=== PATIENT | female | born 1925 | race Caucasian/White ===

== ENCOUNTER 2016-10-05 20:00 | Inpatient (IN) | payer MEDICARE, OTHER ==
[~2016-10-05] VITALS: Ht 154.9 cm; Wt 58.9 kg
[2016-10-05] MEDS ORDERED: NITROGLYCERIN 2% OINT 1 INCH PKT TOPICAL ONE (21:57)
[2016-10-05] MEDS ORDERED: Furosemide 100 MG/10 ML VIAL ONE (21:57)
[2016-10-05] MEDS ORDERED: ASPIRIN 81 MG CHEW TAB ONE (23:53)
[2016-10-06] VITALS (12 sets, daily range): BP systolic 133–202; RESP 16–20; TEMP 97.4–98.5; Ht 154.9 cm; Wt 58.9 kg
[2016-10-06] MEDS ORDERED: LORAZEPAM 0.5 MG TAB PO PRN (00:25)
[2016-10-06] MEDS ORDERED: SALINE FLUSH 10 ML FLUSH PRN (00:25)
[2016-10-06] MEDS ORDERED: DOCUSATE SOD 100 MG CAP PO PRN (00:25)
[2016-10-06] MEDS ORDERED: ACETAMINOPHEN 325 MG TAB PO PRN (00:25)
[2016-10-06] MEDS ORDERED: MORPHINE 2 MG/ML SYR IV PRN (00:25)
[2016-10-06] MEDS ORDERED: SODIUM CHLORIDE 0.9% FLUSH BAG 500 ML IV PRN (00:25)
[2016-10-06] MEDS ORDERED: NITROGLYCERIN 50 MG/250 ML IV PRN (00:25)
[2016-10-06] MEDS ORDERED: TRAMADOL 50 MG TAB PO PRN (00:25)
[2016-10-06] MEDS: NITROGLYCERIN 2% OINT 1 INCH PKT TOPICAL SCH ×4 (06:21→23:49)
[2016-10-06] MEDS: NITROGLYCERIN SL 0.4 MG TAB SL PRN ×2 (06:28→06:36)
[2016-10-06] MEDS: SALINE FLUSH 10 ML FLUSH SCH ×2 (07:37→20:30)
[2016-10-06] MEDS: ASPIRIN EC 81 MG TAB PO SCH (07:37)
[2016-10-06] MEDS ORDERED: Furosemide 40 MG/4 ML VIAL IV SCH ×2 (09:00→21:00)
[2016-10-06] MEDS ORDERED: METOPROLOL TART 50 MG TAB PO SCH (09:00)
[2016-10-06] MEDS: APIXABAN 2.5 MG TAB PO SCH ×2 (10:44→20:31)
[2016-10-06] MEDS: SPIRONOLACTONE 25 MG TAB PO SCH (10:44)
[2016-10-06] MEDS ORDERED: [UNRECOGNIZED DRUG - OTHER] PO SCH (16:35)
[2016-10-06] MEDS ORDERED: THYROID PO SCH ×3 (18:33→18:34)
[2016-10-06] MEDS: *HOME MEDS IN MED CART XX SCH (20:00)
[2016-10-06] MEDS: METOPROLOL TART 25 MG TAB PO SCH (20:31)
[2016-10-06] MEDS: FERROUS SULF 325 MG TAB PO SCH (20:31)
[2016-10-06] MEDS: TEMAZEPAM 7.5 MG CAP PO PRN (21:54)
[2016-10-07] MEDS ORDERED: MISSING DOSE XX ONE ×3 (01:20→17:05)
[2016-10-07 04:20] VITALS: BP_SYST 143; RESP 16; TEMP 97.5
[2016-10-07] MEDS: NITROGLYCERIN 2% OINT 1 INCH PKT TOPICAL SCH ×2 (06:38→12:46)
[2016-10-07 07:37] VITALS: BP_SYST 145; RESP 16; TEMP 97.5
[2016-10-07] MEDS: SPIRONOLACTONE 25 MG TAB PO SCH (09:41)
[2016-10-07] MEDS: METOPROLOL TART 25 MG TAB PO SCH ×2 (09:41→20:29)
[2016-10-07] MEDS: CHOLECALCIFEROL 1,000 UNITS TAB PO SCH (09:41)
[2016-10-07] MEDS: APIXABAN 2.5 MG TAB PO SCH ×2 (09:41→20:29)
[2016-10-07] MEDS: CYANOCOBA 500 MCG TAB PO SCH (09:41)
[2016-10-07] MEDS: FERROUS SULF 325 MG TAB PO SCH ×2 (09:41→20:29)
[2016-10-07] MEDS: ASPIRIN EC 81 MG TAB PO SCH (09:41)
[2016-10-07] MEDS: FENOFIBRATE 145 MG TAB PO SCH (09:41)
[2016-10-07] MEDS: SALINE FLUSH 10 ML FLUSH SCH ×2 (09:42→20:29)
[2016-10-07] MEDS: Furosemide 40 MG/4 ML VIAL IV SCH (09:42)
[2016-10-07] MEDS: *HOME MEDS IN MED CART XX SCH ×2 (09:43→20:00)
[2016-10-07] MEDS: ONDANSETRON 4 MG VIAL IV PRN (09:48)
[2016-10-07 10:40] VITALS: BP_SYST 150; RESP 16; TEMP 97.4
[2016-10-07 14:24] VITALS: BP_SYST 141; RESP 18
[2016-10-07] MEDS: THYROID 15 MG PO SCH ×2 (16:32→17:59)
[2016-10-07] MEDS: THYROID 30 MG TAB PO SCH ×2 (16:33→17:58)
[2016-10-07] MEDS: DOCUSATE SOD 100 MG CAP PO PRN (17:58)
[2016-10-07] MEDS: amLODIPine 2.5 MG TAB PO SCH (17:58)
[2016-10-07 19:59] VITALS: BP_SYST 148; RESP 16; TEMP 97.3
[2016-10-07] MEDS: TEMAZEPAM 7.5 MG CAP PO PRN (21:49)
[2016-10-07 22:48] VITALS: BP_SYST 121; RESP 16; TEMP 97.4
[2016-10-08 03:25] VITALS: BP_SYST 128; RESP 16; TEMP 97.4
[2016-10-08] MEDS: THYROID 15 MG PO SCH (06:16)
[2016-10-08] MEDS: THYROID 30 MG TAB PO SCH (06:16)
[2016-10-08 07:42] VITALS: BP_SYST 139; RESP 16; TEMP 97.4
[2016-10-08] MEDS: *HOME MEDS IN MED CART XX SCH ×2 (08:00→20:00)
[2016-10-08] MEDS: amLODIPine 2.5 MG TAB PO SCH (09:00)
[2016-10-08] MEDS: CYANOCOBA 500 MCG TAB PO SCH (09:00)
[2016-10-08] MEDS: FERROUS SULF 325 MG TAB PO SCH ×2 (09:00→21:12)
[2016-10-08] MEDS: SALINE FLUSH 10 ML FLUSH SCH ×2 (09:00→21:12)
[2016-10-08] MEDS: FENOFIBRATE 145 MG TAB PO SCH (09:01)
[2016-10-08] MEDS: APIXABAN 2.5 MG TAB PO SCH ×2 (09:01→21:12)
[2016-10-08] MEDS: ASPIRIN EC 81 MG TAB PO SCH (09:01)
[2016-10-08] MEDS: SPIRONOLACTONE 25 MG TAB PO SCH (09:01)
[2016-10-08] MEDS: METOPROLOL TART 25 MG TAB PO SCH ×2 (09:01→21:12)
[2016-10-08] MEDS: CHOLECALCIFEROL 1,000 UNITS TAB PO SCH (09:02)
[2016-10-08] MEDS: Furosemide 40 MG/4 ML VIAL IV SCH (09:02)
[2016-10-08] MEDS: DOCUSATE SOD 100 MG CAP PO PRN ×2 (09:02→21:12)
[2016-10-08 11:57] VITALS: BP_SYST 149; RESP 16; TEMP 97.4
[2016-10-08 16:00] VITALS: BP_SYST 152; RESP 16; TEMP 97.8
[2016-10-08 19:17] VITALS: BP_SYST 156; RESP 16; TEMP 97.4
[2016-10-08] MEDS: LORAZEPAM 0.5 MG TAB PO PRN (21:15)
[2016-10-08 23:06] VITALS: BP_SYST 147; RESP 16; TEMP 97.6
[2016-10-09 02:59] VITALS: BP_SYST 134; RESP 16; TEMP 97.6
[2016-10-09] MEDS: THYROID 30 MG TAB PO SCH (06:28)
[2016-10-09] MEDS: THYROID 15 MG PO SCH (06:30)
[2016-10-09] MEDS: *HOME MEDS IN MED CART XX SCH ×2 (07:32→20:00)
[2016-10-09] MEDS ORDERED: SODIUM CHLORIDE 0.9% 250 ML IV ONE (07:50)
[2016-10-09] MEDS ORDERED: KCL 20 MEQ/15 ML UDC PO ONE (07:50)
[2016-10-09 08:07] VITALS: BP_SYST 139; RESP 16; TEMP 97.5
[2016-10-09] MEDS ORDERED: SODIUM CHLORIDE 0.9% 500 ML IV ONE (08:20)
[2016-10-09] MEDS: FERROUS SULF 325 MG TAB PO SCH ×2 (08:25→20:39)
[2016-10-09] MEDS: SALINE FLUSH 10 ML FLUSH SCH ×2 (08:25→20:38)
[2016-10-09] MEDS: METOPROLOL TART 25 MG TAB PO SCH ×2 (08:25→20:39)
[2016-10-09] MEDS: APIXABAN 2.5 MG TAB PO SCH ×2 (08:26→20:39)
[2016-10-09] MEDS: FENOFIBRATE 145 MG TAB PO SCH (08:26)
[2016-10-09] MEDS: ASPIRIN EC 81 MG TAB PO SCH (08:26)
[2016-10-09] MEDS: amLODIPine 2.5 MG TAB PO SCH (08:26)
[2016-10-09] MEDS: CHOLECALCIFEROL 1,000 UNITS TAB PO SCH (08:26)
[2016-10-09] MEDS: CYANOCOBA 500 MCG TAB PO SCH (08:26)
[2016-10-09 12:01] VITALS: BP_SYST 137; RESP 16; TEMP 97.7
[2016-10-09] MEDS: ONDANSETRON 4 MG VIAL IV PRN (13:08)
[2016-10-09 15:44] VITALS: BP_SYST 143; RESP 16; TEMP 97.6
[2016-10-09 19:23] VITALS: BP_SYST 150; RESP 16; TEMP 97.5
[2016-10-09] MEDS: LORAZEPAM 0.5 MG TAB PO PRN (20:39)
[2016-10-09 23:20] VITALS: BP_SYST 134; RESP 16; TEMP 97.8
[2016-10-10] MEDS: TEMAZEPAM 7.5 MG CAP PO PRN (01:57)
[2016-10-10 03:53] VITALS: BP_SYST 144; RESP 16; TEMP 97.6
[2016-10-10] MEDS: THYROID 15 MG PO SCH (06:29)
[2016-10-10] MEDS: THYROID 30 MG TAB PO SCH (06:29)
[2016-10-10 07:09] VITALS: BP_SYST 147; RESP 16; TEMP 97.7
[2016-10-10] MEDS: *HOME MEDS IN MED CART XX SCH ×2 (09:15→20:00)
[2016-10-10] MEDS: ASPIRIN EC 81 MG TAB PO SCH (09:17)
[2016-10-10] MEDS: FENOFIBRATE 145 MG TAB PO SCH (09:18)
[2016-10-10] MEDS: CHOLECALCIFEROL 1,000 UNITS TAB PO SCH (09:18)
[2016-10-10] MEDS: FERROUS SULF 325 MG TAB PO SCH ×2 (09:18→21:38)
[2016-10-10] MEDS: METOPROLOL TART 25 MG TAB PO SCH ×2 (09:18→21:38)
[2016-10-10] MEDS: amLODIPine 2.5 MG TAB PO SCH (09:18)
[2016-10-10] MEDS: CYANOCOBA 500 MCG TAB PO SCH (09:18)
[2016-10-10] MEDS: APIXABAN 2.5 MG TAB PO SCH ×2 (09:21→21:38)
[2016-10-10] MEDS: SALINE FLUSH 10 ML FLUSH SCH ×3 (09:21→21:37)
[2016-10-10 10:58] VITALS: BP_SYST 156; RESP 16; TEMP 97.5
[2016-10-10 15:02] VITALS: BP_SYST 147; RESP 16; TEMP 97.9
[2016-10-10 20:41] VITALS: BP_SYST 163; RESP 16; TEMP 98
[2016-10-10] MEDS: LORAZEPAM 0.5 MG TAB PO PRN (21:48)
[2016-10-10 23:30] VITALS: BP_SYST 160; RESP 16; TEMP 98
[2016-10-11] MEDS: TEMAZEPAM 7.5 MG CAP PO PRN (00:27)
[2016-10-11 04:54] VITALS: BP_SYST 145; RESP 16; TEMP 97.8
[2016-10-11] MEDS: THYROID 30 MG TAB PO SCH (06:08)
[2016-10-11] MEDS: THYROID 15 MG PO SCH (06:09)
[2016-10-11 07:26] VITALS: BP_SYST 148; RESP 16; TEMP 97.8
[2016-10-11] MEDS: *HOME MEDS IN MED CART XX SCH (08:00)
[2016-10-11] MEDS: SALINE FLUSH 10 ML FLUSH SCH (08:56)
[2016-10-11] MEDS: METOPROLOL TART 25 MG TAB PO SCH (08:57)
[2016-10-11] MEDS: APIXABAN 2.5 MG TAB PO SCH (08:57)
[2016-10-11] MEDS: CYANOCOBA 500 MCG TAB PO SCH (08:57)
[2016-10-11] MEDS: FENOFIBRATE 145 MG TAB PO SCH (08:57)
[2016-10-11] MEDS: ASPIRIN EC 81 MG TAB PO SCH (08:57)
[2016-10-11] MEDS: amLODIPine 2.5 MG TAB PO SCH (08:57)
[2016-10-11] MEDS: CHOLECALCIFEROL 1,000 UNITS TAB PO SCH (08:57)
[2016-10-11] MEDS: FERROUS SULF 325 MG TAB PO SCH (08:57)
[2016-10-11 10:59] VITALS: BP_SYST 156; RESP 16; TEMP 97.5
[2016-10-11 11:34] VITALS: BP_SYST 156; RESP 16; TEMP 97.5
== END 2016-10-11 13:37 | disposition home or self-care (01) | DRG 291 ==
LOC: ENRESERVTM → ENRESERVDT → ER 20:00 → EMR 23:29 → 5THE 10-06 00:58 → OBSVTOIN 10-06 12:11 → ENPENDDIS 10-06 12:11
PROVIDERS: ADMIT Internal Medicine Cardiovascular Disease; ATTEND Internal Medicine Cardiovascular Disease
CPT/HCPCS: 36415; 71010; 71020; 80048; 80053; 80061; 81001; 82553; 83735; 83880; 84439; 84443; 84484; 85025; 85610; 93005; 94799; 96374